=== PATIENT | female | born 2000 | race Caucasian/White ===

== ENCOUNTER → 2022-01-13 09:37 | Outpatient (BNVA) | payer BC, SELFPAY | PROVIDERS: Visit Provider Obstetrics & Gynecology | DX: Z34.90 Encounter for supervision of normal pregnancy, unspecified, unspecified trimester (principal) | CPT/HCPCS: 81000; 87086 ==

== ENCOUNTER → 2022-01-25 10:00 | Outpatient (BNVA) | payer BC, MEDICAID, SELFPAY | PROVIDERS: Visit Provider Obstetrics & Gynecology | DX: O09.899 Supervision of other high risk pregnancies, unspecified trimester (principal); O99.210 Obesity complicating pregnancy, unspecified trimester; Z3A.00 Weeks of gestation of pregnancy not specified | CPT/HCPCS: 80307; 82950; 84315; 84443; 85027; 86592; 86762; 86803; 86850; 86900; 87086; 87340; 87491; 87591; 87806 ==

== ENCOUNTER → 2022-03-01 08:15 | Outpatient (BNVA) | payer BC, MEDICAID, SELFPAY | PROVIDERS: Visit Provider Obstetrics & Gynecology | DX: O09.899 Supervision of other high risk pregnancies, unspecified trimester (principal); O99.210 Obesity complicating pregnancy, unspecified trimester; Z3A.00 Weeks of gestation of pregnancy not specified | CPT/HCPCS: 81000 ==

== ENCOUNTER 2022-03-17 11:50 | Outpatient (CLI) | payer BC, MEDICAID, SELFPAY ==
[2022-03-17 12:16] VITALS: BP 130/59; PULSE 99
[2022-03-17 12:22] VITALS: TEMP 36.3
[2022-03-17 12:37] VITALS: BMI 46.5
[2022-03-17] MEDS: acetaminophen 500 mg Tablet 1000 MG PO (12:46)
== END 2022-03-17 13:00 | disposition home or self-care (01) ==
LOC: OPOB 12:00 → OBGYN 12:02
PROVIDERS: Visit Provider Obstetrics & Gynecology
DX: O26.899 Other specified pregnancy related conditions, unspecified trimester (principal); R10.2 Pelvic and perineal pain; R10.9 Unspecified abdominal pain
CPT/HCPCS: 59025; 99211

== ENCOUNTER → 2022-03-22 08:59 | Outpatient (BNVA) | payer BC, MEDICAID, SELFPAY | PROVIDERS: Visit Provider Obstetrics & Gynecology | DX: O09.899 Supervision of other high risk pregnancies, unspecified trimester (principal); O99.210 Obesity complicating pregnancy, unspecified trimester; E66.9 Obesity, unspecified; Z3A.00 Weeks of gestation of pregnancy not specified | CPT/HCPCS: 81000; 82950; 85025; 87086 ==

== ENCOUNTER 2022-04-12 11:15 | Outpatient (CLI) | payer BC, MEDICAID, SELFPAY ==
[2022-04-12 11:15] VITALS: BMI 46.5
--- NOTE | 2022-04-12 11:34 | PC.NURSE ---
@ [id number] called L&D for orders for this pt to come and get an NST, IV placement, IV fluid bolus of D5LR, pre-e work up. 4mg IVP of Zofran once.
[2022-04-12 11:47] VITALS: BP 118/68; PULSE 90
[2022-04-12] MEDS: dextrose 5%-lactated ringers 1,000 ML 999 ML IV (11:47)
[2022-04-12] MEDS: ondansetron 2 mg/ML SDV 2 mL 4 MG IVP (11:48)
[2022-04-12 11:50] VITALS: RESP 18; TEMP 36.6
--- NOTE | 2022-04-12 12:00 | US_ITS ---
WS: [id number] BIOPHYSICAL PROFILE AMNIOTIC FLUID HISTORY: decreased movement COMPARISON: 02/18/2022 Cardiac activity: 141 bpm. Cervix: closed. Placenta: Posterior, no previa or abruption. Placenta grade: 1 Position: Vertex. Parameters are as follows: Breathin Movement: 2 Tone: 2 Fluid volume: 2 Amniotic fluid index 9.4 cm. Largest vertical pocket is 4.6 cm. US/US OB BPP wo NST [id number] IMPRESSION: 1. Biophysical profile score: 8/8. 2. Low normal amniotic fluid index.
[2022-04-12 12:03] LABS: Basophils % 0.4 %; Eosinophils # 0.3 10^3/uL (0.0-0.8); Eosinophils % 3.5 %; Hematocrit 34.7 % (37.0-47.0); Hemoglobin 11.2 g/dL (11.5-15.3); Lymphocytes # 1.7 10^3/uL (0.8-4.8); Lymphocytes % 21.5 %; Mean Corpuscular HGB Conc 32.3 g/dL (30.0-36.0); Mean Corpuscular Hemoglobin 26.2 pg (28.0-34.0); Mean Corpuscular Volume 81.3 fl (81-99); Mean Platelet Volume 11.8 fL (7.4-10.4); Monocytes # 0.6 10^3/uL (0.2-0.9); Monocytes % 7.5 %; Neutrophils % 66.7 %; Nucleated Red Blood Cells % 0 %; Platelet Count 191 10^3/cmm (130-400); Red Blood Count 4.27 10^6/uL (4.1-5.3); Red Cell Distribution Width 16.2 % (12.1-15.1); White Blood Count 8.1 10^3/uL (4.0-10.0)
[2022-04-12 12:17] LABS: Add Urine Microscopic? YES; Bacteria Urine 1+ /hpf; Bilirubin Urine Neg (Negative); Blood Urine Neg (Negative); Glucose Urine UA Norm (Normal); Ketones Urine Negative (Negative); Leukocyte Esterase Urine 1+ (Negative); Nitrate Urine Negative (Negative); Protein Urine Neg (Negative); RBC Urine 0-4 /hpf (0-2); Specific Gravity, Urine 1.025 (1.005-1.030); Squamous Epithelial Cell Urine 15-25 /hpf (0-5); Urine Appearance Hazy (CLEAR); Urine Color Yellow (Yellow); Urobilinogen Urine Norm (Negative); pH Urine 6 (5-7)
[2022-04-12 12:18] LABS: Add Urine Culture? Yes; Fine Granular Casts Urine 0-4 /lpf
[2022-04-12 12:20] VITALS: BP 123/58; PULSE 72
[2022-04-12 12:22] LABS: Urine Creatinine 157 mg/dL (28-217); Urine Protein Random 16 mg/dL
[2022-04-12 12:26] LABS: Alanine Aminotransferase 9 U/L (0-33); Albumin Level 3.6 g/dL (3.5-5.2); Alkaline Phosphatase 92 IU/L (35-105); Aspartate Amino Transferase 12 U/L (0-32); Blood Urea Nitrogen 7 mg/dL (6-20); Calcium 9.3 mg/dL (8.5-10.5); Carbon Dioxide 20 mmol/L (22-29); Chloride 105 mmol/L (98-107); Glomerular Filtration Rate 201.5 mL/min (90-130); Glucose 84 mg/dL (65-115); Osmolality Calculated 281 mOsm/kg (285-295); Sodium 137 mmol/L (136-145); Total Bilirubin 0.3 mg/dL (0.15-1.2); Total Protein 6.6 g/dL (6.6-8.7); Uric Acid 3.6 mg/dL (2.4-5.7)
[2022-04-12 13:20] VITALS: BP 123/58; PULSE 72
== END 2022-04-12 13:20 | disposition home or self-care (01) ==
LOC: OPOB 11:18 → OBGYN 11:18
PROVIDERS: Visit Provider Obstetrics & Gynecology
DX: O36.8190 Decreased fetal movements, unspecified trimester, not applicable or unspecified (principal); Z3A.00 Weeks of gestation of pregnancy not specified; R60.0 Localized edema
CPT/HCPCS: 36415; 59025; 76819; 80053; 81000; 81001; 82570; 84156; 84550; 85025; 87077; 87086; 87184; 99211; J2405

== ENCOUNTER 2022-04-26 10:38 | Outpatient (CLI) | payer BC, MEDICAID, SELFPAY ==
[2022-04-26] VITALS (9 sets, daily range): BP systolic 123–160; BP diastolic 58–77; PULSE 71–97; RESP 16–18; BMI 46.9
--- NOTE | 2022-04-26 10:48 | US_ITS ---
WS: [id number] BIOPHYSICAL PROFILE AMNIOTIC FLUID HISTORY: DECREASED MOVEMENT COMPARISON: 04/12/2022 Cardiac activity: 153 bpm. Cervix: closed. Placenta: Anterior, no previa. Placenta grade: 2 Parameters are as follows: Breathin Movement: 2 Tone: 2 Fluid volume: 2 Amniotic fluid index: 13.5 cm which is at the 50th percentile for gestational age. Largest vertical p ocket of amniotic fluid 3.5 cm. US/US OB BPP wo NST [id number] IMPRESSION: 1. Biophysical profile score: 8/8. 2. Normal amniotic fluid index. Volume of amniotic fluid has slightly improved since 04/12/2022.
[2022-04-26 11:08] LABS: Add Urine Microscopic? NO; Charge for UA Resulting for Rev
[2022-04-26 11:16] LABS: Basophils % 0.3 %; Eosinophils # 0.2 10^3/uL (0.0-0.8); Eosinophils % 3.6 %; Hematocrit 36.1 % (37.0-47.0); Lymphocytes # 1.7 10^3/uL (0.8-4.8); Lymphocytes % 26.9 %; Mean Corpuscular HGB Conc 30.5 g/dL (30.0-36.0); Mean Corpuscular Hemoglobin 25.9 pg (28.0-34.0); Mean Corpuscular Volume 85.1 fl (81-99); Mean Platelet Volume 11.8 fL (7.4-10.4); Monocytes # 0.5 10^3/uL (0.2-0.9); Monocytes % 7.3 %; Neutrophils # 3.93 10^3/uL (1.8-7.7); Neutrophils % 61.4 %; Nucleated Red Blood Cells % 0 %; Platelet Count 204 10^3/cmm (130-400); Red Blood Count 4.24 10^6/uL (4.1-5.3); Red Cell Distribution Width 16.8 % (12.1-15.1); White Blood Count 6.4 10^3/uL (4.0-10.0)
[2022-04-26 11:40] LABS: Urine Appearance Clear (CLEAR); Urine Color Straw (Yellow); pH Urine 7 (5-7)
[2022-04-26 11:41] LABS: Bilirubin Urine Neg (Negative); Blood Urine Neg (Negative); Glucose Urine UA Norm (Normal); Ketones Urine Negative (Negative); Leukocyte Esterase Urine Negative (Negative); Nitrate Urine Negative (Negative); Protein Urine Neg (Negative); Urobilinogen Urine Norm (Negative)
[2022-04-26 12:00] LABS: Urine Creatinine 54 mg/dL (28-217); Urine Protein Random 6 mg/dL
[2022-04-26 12:01] LABS: Alanine Aminotransferase 10 U/L (0-33); Albumin Level 3.2 g/dL (3.5-5.2); Alkaline Phosphatase 106 IU/L (35-105); Anion Gap 14.2 (5-19); Aspartate Amino Transferase 12 U/L (0-32); Blood Urea Nitrogen 5 mg/dL (6-20); Calcium 9.1 mg/dL (8.5-10.5); Carbon Dioxide 20 mmol/L (22-29); Chloride 104 mmol/L (98-107); Glomerular Filtration Rate 201.5 mL/min (90-130); Glucose 94 mg/dL (65-115); Osmolality Calculated 275 mOsm/kg (285-295); Potassium 4.2 mmol/L (3.5-5.1); Sodium 134 mmol/L (136-145); Total Bilirubin 0.2 mg/dL (0.15-1.2); Total Protein 6.2 g/dL (6.6-8.7); Uric Acid 3.5 mg/dL (2.4-5.7)
[2022-04-26 12:04] LABS: UPRO/UCREAT Ratio 0.11 mg/mg CR
== END 2022-04-26 13:02 | disposition home or self-care (01) ==
LOC: OPOB 10:41 → OBGYN 10:42
PROVIDERS: Visit Provider Obstetrics & Gynecology
DX: O36.8190 Decreased fetal movements, unspecified trimester, not applicable or unspecified (principal); Z3A.00 Weeks of gestation of pregnancy not specified; R51.9 Headache, unspecified
CPT/HCPCS: 36415; 59025; 76819; 80053; 81003; 82570; 82728; 82746; 83550; 84156; 84315; 84550; 85025; 99211

== ENCOUNTER → 2022-05-10 10:05 | Outpatient (BNVA) | payer BC, MEDICAID, SELFPAY | PROVIDERS: Visit Provider Obstetrics & Gynecology | DX: O09.899 Supervision of other high risk pregnancies, unspecified trimester (principal); O99.210 Obesity complicating pregnancy, unspecified trimester; Z3A.00 Weeks of gestation of pregnancy not specified | CPT/HCPCS: 84315; 87081 ==

== ENCOUNTER → 2022-05-28 10:10 | Outpatient (BNVA) | payer BC, MEDICAID, SELFPAY | PROVIDERS: Visit Provider Obstetrics & Gynecology | DX: O09.899 Supervision of other high risk pregnancies, unspecified trimester (principal); Z3A.00 Weeks of gestation of pregnancy not specified | CPT/HCPCS: 81000 ==

== ENCOUNTER 2022-06-10 04:27 | Inpatient (IN) | payer BC, MEDICAID, SELFPAY ==
[2022-06-10] VITALS (64 sets, daily range): BP systolic 102–174; BP diastolic 51–110; PULSE 42–122; RESP 16–17; TEMP 35.4–36.8; O2SAT 92–99; BMI 46.4
[2022-06-10 04:09] LABS: Nitrazine Paper, PH Negative
[2022-06-10 04:12] LABS: Actim Prom Positive
[2022-06-10 04:53] LABS: Bilirubin Urine Neg (Negative); Blood Urine Trace (Negative); Glucose Urine UA Norm (Normal); Ketones Urine 1+ (Negative); Leukocyte Esterase Urine 1+ (Negative); Nitrate Urine Negative (Negative); Protein Urine Neg (Negative); Urine Appearance Hazy (CLEAR); Urine Color Yellow (Yellow); Urobilinogen Urine Norm (Negative); pH Urine 7 (5-7)
[2022-06-10 04:54] LABS: Add Urine Culture? No; Amorphous Sediment Urine 1+ /hpf; Bacteria Urine TRACE /hpf; RBC Urine 0-4 /hpf (0-2)
[2022-06-10] MEDS: dextrose 5%-lactated ringers 1,000 ML 125 ML IV (05:01)
[2022-06-10] MEDS: miSOPROStol 100 mcg tablet 25 MCG VAGINAL (05:01)
[2022-06-10 05:05] LABS: Basophils % 0.3 %; Eosinophils # 0.2 10^3/uL (0.0-0.8); Hematocrit 39.5 % (37.0-47.0); Lymphocytes # 1.8 10^3/uL (0.8-4.8); Lymphocytes % 27.5 %; Mean Corpuscular HGB Conc 30.4 g/dL (30.0-36.0); Mean Corpuscular Hemoglobin 24.8 pg (28.0-34.0); Mean Corpuscular Volume 81.6 fl (81-99); Mean Platelet Volume 12.1 fL (7.4-10.4); Monocytes # 0.5 10^3/uL (0.2-0.9); Neutrophils # 3.97 10^3/uL (1.8-7.7); Neutrophils % 61.9 %; Nucleated Red Blood Cells % 0 %; Platelet Count 206 10^3/cmm (130-400); Red Blood Count 4.84 10^6/uL (4.1-5.3); Red Cell Distribution Width 16.6 % (12.1-15.1); White Blood Count 6.4 10^3/uL (4.0-10.0)
--- NOTE | 2022-06-10 08:27 | PM.OPHPUD ---
Labor & Delivery H&P Update Date of Procedure: June 10, 2022 Date H&P Performed: 05/28/22 H&P update information: I have reviewed H&P completed within last 30 days, I have examined patient prior to procedure and Changes to prior documentation as noted here Changes to previous documentation: The patient presents with SROM @ 40 weeks, 4 days. cervix is unchanged from office Admission Diagnosis: Related Problem List Diagnoses (1) Supervision of other high risk , antepartum: (2) Obesity affecting , antepartum:
[2022-06-10] MEDS: lactated ringers 1,000 ML 999 ML IV ×2 (10:14→10:15)
--- NOTE | 2022-06-10 12:24 | ANES.PREANE2 ---
Pre-Anesthetic Assessment Height/Weight: Height 1.6 m Weight 118.841 kg Temp Pulse Resp BP Pulse Ox O2 Del Method 95.7 F L 88 16 146/76 99 06/10/22 08:03 06/10/22 12:18 06/10/22 04:53 06/10/22 12:18 06/10/22 10:05 06/10/22 05:27 Familial anesthetic complications: None Was Beta Joy taken within 24 hours: N/A Was Clonidine taken within 24 hours: N/A Social No alcohol and No tobacco Exam alert, oriented x 3, clear to auscultation bilaterally and regular rate & rhythm Airway Submandibular: within normal limits Cervical ROM: within normal limits Mallampati: Class II Dentition: chipped Metabolic Morbid Obesity Anesthetic Plan ASA status: 2 Anesthesia: Regional (specify below) (Labor epidural) Medications/Allergies Home Medications Medication Instructions Recorded Confirmed Last Taken Type breast pump #1 ea 04/12/22 05/28/22 Unknown Rx ferrous sulfate 325 mg (65 mg 325 mg PO BID 04/12/22 06/10/22 06/09/22 17:00 History iron) tablet,delayed release vits no.124-ferrous fum 1 tab PO DAILY 04/12/22 06/10/22 06/09/22 20:00 History 27 mg iron-folic acid 800 mcg tablet ( Vitamin) ondansetron HCl 4 mg tablet 4 mg PO Q6H #30 tabs 04/26/22 05/28/22 Unknown Rx metronidazole 500 mg tablet 500 mg PO BID #14 tabs 05/10/22 05/28/22 Unknown Rx Allergies Allergy/AdvReac Type Severity Reaction Status Date / Time hydrocodone Allergy Severe ALGY-Anaphy Verified 05/28/22 09:39 laxis Current Medications Generic Name Dose Route Start Last Admin Trade Name Freq PRN Reason Stop Dose Admin Dextrose/Lactated Ringer's 1,000 mls @ 125 mls/hr 06/10/22 04:30 06/10/22 05:01 Dextrose 5%-Lactated Ringers IV 125 mls/hr .Q8H KHALIF Administration Lactated Ringer's 1,000 mls @ 999 mls/hr 06/10/22 08:52 06/10/22 10:15 Lactated Ringers IV 999 mls/hr .Q1H1M PRN Administration See label comments Ropivacaine 200 mg in 100 mls @ 13 mls/hr 06/10/22 09:00 06/10/22 10:15 Naropin Premix EPIDURAL 13 mls/hr .Q7H42M KHALIF Administration Misoprostol 25 mcg 06/10/22 04:30 06/10/22 05:01 Misoprostol 100 Mcg Tablet VAGINAL 06/10/22 12:31 25 mcg Q4H KHALIF Administration PFSH Anesthesia Medical History No pertinent past medical history nghx: dm, htn, thyroid, dvt/pe PCP: unknown Surgical History No pertinent past surgical history Family History Grandfather Heart disease paternal Stroke maternal and paternal Diabetes maternal Mother Uterine cancer Grandmother Stroke maternal and paternal Denies family history of Colon cancer Ovarian cancer Hyperlipidemia Breast cancer Bleeding disorder Hypertension Thyroid disease Social History Smoking and tobacco status: former smoker Female Reproductive History : 3 Data Anesthesia : 06/10/22 04:29 Short CBC 06/10/22 Range/Units 04:29 WBC 6.4 (4.0-10.0) 10^3/uL Hgb 12.0 (11.5-15.3) g/dL Hct 39.5 (37.0-47.0) % MCV 81.6 (81-99) fl Plt Count 206 (130-400) 10^3/cmm Neut % (Auto) 61.9 % Neut # (Auto) 3.97 (1.8-7.7) 10^3/uL Urine 06/10/22 Range/Units 03:45 Urine Color Yellow (Yellow) Urine Appearance Hazy A (CLEAR) Urine pH 7 (5-7) Ur Specific [employer] 1.010 (1.005-1.030) Urine Protein Neg (Negative) Urine Glucose (UA) Norm (Normal) Urine Ketones 1+ H (Negative) Urine Nitrate Negative (Negative) Urine Bilirubin Neg (Negative) Ur Leukocyte Esterase 1+ H (Negative) Urine RBC 0-4 H (0-2) /hpf Urine WBC 5-10 H (0-5) /hpf Cardiac Studies: No Data to Display Anesthesia Procedures Epidural Time Out Performed: Yes Consents Signed: Procedure Consent Consent: requested by attending/covering physician, from patient, risks and benefits reviewed and patient agrees to proceed Lumbar Level: L3-L4 Epidural position: sitting Epidural procedure: sterile prep of area, 1% lidocaine to numb the area, 18 g needle, neg for paresthesia, test dose given, 1.5% xylocaine 1:200k epi, placed PCEA, no systemic response and 0.2% Ropiavacaine @ mls/hr (13) Additional Comments: NARCISO at 7cm, cath 12cm.
[2022-06-10] MEDS: oxytocin 30 UNIT/500 ML BAG 600 UNIT IV (15:27)
--- NOTE | 2022-06-10 16:43 | PM.DELIVERY ---
Delivery Note: Date of delivery: June 10, 2022 Pre-delivery diagnoses: iup@ 40w4d with PROM Post-delivery diagnoses: same-delivered Procedure: Delivering Physician: Nahomi Estimated blood loss (mL): 20 Findings: term male in the LITA presentation Pre-Delivery Course: The patient presented to labor and delivery with a complaint of PROM. She received one dose of cytotec and began to have painful contractions. She received an epidural for pain management. She had complete cervical dilation and began pushing. Delivery: The patient had complete cervical dilation and began to push. The head delivered in the LITA position over an intact perineum under epidural anesthesia. The nose and mouth were bulb suctioned. The shoulders and body delivered atraumatically. The baby was placed onto the mother's abdomen. The cord was clamped and cut. Cord blood was obtained. The placenta delivered spontaneously. It was inspected and found to be intact. Inspection of the perineum revealed no lacerations and no repair was required. Estimated blood loss 20 mL. Apgars on baby were 8 at 1 minute and 9 at 5 minutes. Weight of baby is 7 pounds 9 ounces. Mother and baby were stable post delivery. History History History 3 Term 1 0 Miscarriages/Ectopic 1 Living Children 1 Coding Level of Care Code Acute Front End Mechanic for Shannang Malini
[2022-06-10] MEDS: docusate sodium 100 mg Capsule PO (18:12)
[2022-06-10] MEDS: acetaminophen 325 mg Tablet 650 MG PO (18:12)
[2022-06-10] MEDS: ibuprofen 800 mg tablet PO (21:13)
[2022-06-11 01:00] VITALS: BP 107/68; PULSE 75; O2SAT 98
[2022-06-11 04:36] LABS: Hematocrit 35.2 % (37.0-47.0); Hemoglobin 10.6 g/dL (11.5-15.3); Mean Corpuscular HGB Conc 30.1 g/dL (30.0-36.0); Mean Corpuscular Hemoglobin 24.8 pg (28.0-34.0); Mean Corpuscular Volume 82.4 fl (81-99); Mean Platelet Volume 12.1 fL (7.4-10.4); Platelet Count 160 10^3/cmm (130-400); Red Blood Count 4.27 10^6/uL (4.1-5.3); Red Cell Distribution Width 16.8 % (12.1-15.1); White Blood Count 8.3 10^3/uL (4.0-10.0)
[2022-06-11 05:10] VITALS: BP 118/80; PULSE 73; RESP 18; O2SAT 99
--- NOTE | 2022-06-11 07:18 | ANE.PACU2 ---
Inpatient post-anesthesia follow up: Airway intact: Yes Vital signs: Temperature 97.9 F Pulse Rate 73 Respiratory Rate 18 Blood Pressure 118/80 Pulse Oximetry 99 Oxygen Delivery Me thod Room Air Oxygen Flow Rate Fraction of Inspir ed Oxygen Hydration adequate: Yes Nausea and vomiting: No Pain level: 2 Mental status: Baseline
--- NOTE | 2022-06-11 08:38 | P.DS_ITS ---
Discharge Providers Date of Admission: 06/10/22 04:27 Date of Discharge: June 11, 2022 Attending Provider at Admission: Francisca Comer MD Attending Provider at Discharge: Francisca Comer MD Primary Care Provider: ASHA Provider Diagnoses at Discharge Discharge Diagnosis (1) Supervision of other high risk , antepartum: Status: Acute (2) Obesity affecting , antepartum: Status: Acute Reason for Visit Reason for Visit: possible ROM Hospital Course Hospital Course The patient was admitted with SROM. She had spontaneous delivery of a term . She did well and was ready for discharge. Physical Exam Narrative: doing well this morning. No concerns today Const: COMMON NORMALS: no acute distress, patient oriented x3, no limitations, healthy appearing, alert and well nourished GENERAL APPEARANCE: cooperative, comfortable, well kempt and well developed ORIENTATION/CONSCIOUSNESS: Yes awake, Yes oriented to person, Yes oriented to place and Yes oriented to time Resp: COMMON NORMALS: normal respiratory effort EFFORT & INSPECTION: Yes able to speak in complete sentences GI: COMMON NORMALS: Soft to palpation and non-tender PALPATION: Yes Soft to palpation Extremity: COMMON NORMALS: no clubbing, cyanosis or edema and no calf tenderness Neuro: COMMON NORMALS: patient oriented x3 SENSORIUM/ORIENTATION: Yes alert, Yes oriented to person, Yes oriented to place and Yes oriented to time Psych: APPEARANCE: Yes well kempt Urinary Catheter Management: Gomez Latex: Cath Placed During This Visit: yes, but has since been removed by the nurse Reason for Continuing Indwelling Catheter: Required Immobilization for Trauma or Surgery or Anesthesia Urinary Catheter Date of Insertion: 06/10/22 Urinary Catheter Time of Insertion: 10:52 Date Urinary Catheter Removed: 06/10/22 Time Urinary Catheter Discontinued: 15:08 Discharge Data Studies Completed and Pending Laboratory Results WBC 8.3 10^3/uL (4.0-10.0) 06/11/22 03:04 RBC 4.27 10^6/uL (4.1-5.3) 06/11/22 03:04 Hgb 10.6 g/dL (11.5-15.3) L 06/11/22 03:04 Hct 35.2 % (37.0-47.0) L 06/11/22 03:04 MCV 82.4 fl (81-99) 06/11/22 03:04 MCH 24.8 pg (28.0-34.0) L 06/11/22 03:04 MCHC 30.1 g/dL (30.0-36.0) 06/11/22 03:04 RDW 16.8 % (12.1-15.1) H 06/11/22 03:04 Plt Count 160 10^3/cmm (130-400) 06/11/22 03:04 MPV 12.1 fL (7.4-10.4) H 06/11/22 03:04 Neut % (Auto) 61.9 % 06/10/22 04:29 Lymph % (Auto) 27.5 % 06/10/22 04:29 [place] % (Auto) 7.0 % 06/10/22 04:29 Eos % (Auto) 3.0 % 06/10/22 04:29 Baso % (Auto) 0.3 % 06/10/22 04:29 Neut # (Auto) 3.97 10^3/uL (1.8-7.7) 06/10/22 04:29 Lymph # (Auto) 1.8 10^3/uL (0.8-4.8) 06/10/22 04:29 [place] # (Auto) 0.5 10^3/uL (0.2-0.9) 06/10/22 04:29 Eos # (Auto) 0.2 10^3/uL (0.0-0.8) 06/10/22 04:29 Baso # (Auto) 0.0 10^3/uL (0.0-0.1) 06/10/22 04:29 Nucleated RBC % (auto) 0 % 06/10/22 04:29 Nucleated RBCs # 0.0 /100WBC 06/10/22 04:29 Insulin-like GF I Positive 06/10/22 03:45 Urine Color Yellow (Yellow) 06/10/22 03:45 Urine Appearance Hazy (CLEAR) A 06/10/22 03:45 Urine pH 7 (5-7) 06/10/22 03:45 Ur Specific [place] 1.010 (1.005-1.030) 06/10/22 03:45 Urine Protein Neg (Negative) 06/10/22 03:45 Urine Glucose (UA) Norm (Normal) 06/10/22 03:45 Urine Ketones 1+ (Negative) H 06/10/22 03:45 Urine Blood Trace (Negative) H 06/10/22 03:45 Urine Nitrate Negative (Negative) 06/10/22 03:45 Urine Bilirubin Neg (Negative) 06/10/22 03:45 Urine Urobilinogen Norm mg/dL (Negative) 06/10/22 03:45 Ur Leukocyte Esterase 1+ (Negative) H 06/10/22 03:45 Urine RBC 0-4 /hpf (0-2) H 06/10/22 03:45 Urine WBC 5-10 /hpf (0-5) H 06/10/22 03:45 Ur Squamous Epith Cells 5-10 /hpf (0-5) H 06/10/22 03:45 Amorphous Sediment 1+ /hpf 06/10/22 03:45 Urine Bacteria Trace /hpf (NONE) 06/10/22 03:45 Urine Yeast Trace /hpf 06/10/22 03:45 Vitals Last Vital Signs Temp 97.9 F 06/10/22 23:00 Pulse 73 06/11/22 05:10 Resp 18 06/11/22 05:10 BP 118/80 06/11/22 05:10 Pulse Ox 99 06/11/22 05:10 O2 Del Method 06/11/22 05:10 Discharge Plan Discharge Patient Disposition: Home Condition: Stable Prescriptions: New ibuprofen 800 mg Tablet 800 mg PO TID Qty: 30 0RF Continued ferrous sulfate 325 mg (65 mg iron) tablet,delayed release (DR/EC) 325 mg PO BID (DME) breast pump Device See Rx Instructions .Route Qty: 1 0RF Rx Instructions: As directed metronidazole 500 mg tablet 500 mg PO BID Qty: 14 0RF ondansetron HCl 4 mg tablet 4 mg PO Q6H Qty: 30 2RF Vitamin 27 mg iron- 800 mcg Tablet 1 tab PO DAILY Discharge Orders: Discharge Order (Routine); Ordered 06/11/22 Ordered By: Francisca Comer Referrals: Francisca Comer MD [Physician] - 06/23/22 9:00 am Patient Instructions: Depression (DC), Bleeding (DC), Preeclampsia and Eclampsia After Delivery (GEN), Hemorrhage (DC), OB Discharge Report, OB Food/Drug Interaction Guide, OB Care at Home, Opioid Safety, OB Home Care, OB Vaginal Deliveries - [facility] Discharge Attestations Time Spent in Discharge Care*: less than 30 min Quality Metrics Clinical Quality Measures [ No reported AMI, CVA or VTE this stay] Coding Level of Care Code Acute Chg FW DC note Diagnoses Supervision of other high risk , antepartum O09.899 Obesity affecting , antepartum O99.210
[2022-06-11] MEDS: ibuprofen 800 mg tablet PO (09:33)
[2022-06-11] MEDS: docusate sodium 100 mg Capsule PO (09:33)
[2022-06-11] MEDS: prenatal vitamin Capsule 1 CAP PO (09:33)
[2022-06-11 09:36] VITALS: BP 124/73; PULSE 77; RESP 16; TEMP 36.6; TEMP 36.7; O2SAT 98
[2022-06-11 16:05] VITALS: BP 125/85; PULSE 89; RESP 16; TEMP 37; O2SAT 99
[2022-06-11 17:00] VITALS: BP 125/85; PULSE 89; RESP 16; TEMP 37; O2SAT 99
== END 2022-06-11 17:08 | disposition home or self-care (01) | DRG 807 ==
LOC: OPOB 04:27 → OBGYN 04:27
PROVIDERS: Admitting Provider Obstetrics & Gynecology; Visit Provider Obstetrics & Gynecology
DX: O42.02 Full-term premature rupture of membranes, onset of labor within 24 hours of rupture (principal); Z37.0 Single live birth; O48.0 Post-term pregnancy; Z3A.40 40 weeks gestation of pregnancy; O99.214 Obesity complicating childbirth; E66.01 Morbid (severe) obesity due to excess calories
CPT/HCPCS: 36415; 51702; 59025; 59409; 81001; 83986; 84112; 85025; 85027; 99211; J2795

== ENCOUNTER → 2022-07-28 10:33 | Outpatient (BNVA) | payer BC, MEDICAID, SELFPAY | PROVIDERS: Visit Provider Obstetrics & Gynecology | DX: O09.899 Supervision of other high risk pregnancies, unspecified trimester (principal); Z3A.00 Weeks of gestation of pregnancy not specified | CPT/HCPCS: 88175 ==